=== PATIENT | male | born 1975 | race Caucasian/White ===

== ENCOUNTER 2021-04-28 07:18 | Day surgery (SDC) | payer OTHER ==
[~2021-04-28] VITALS: Ht 180.3 cm; Wt 158.4 kg
[~2021-04-28 07:18] MED LIST: CITA20 PO; LISI20 PO; METF500C PO
--- NOTE | 2021-04-28 09:18 | NUR ---
04/28/21 0918 Isael Saeed History, Chart, Medications and Allergies reviewed before start of procedure.MONITOR INTACT WITH CONTINUOUS PULSE OXIMETRY AND INTERMITTENT BP.3-LEAD EKG REVIEWED WITH PHYSICIAN PRIOR TO START OF PROCEDURE.O2 VIA N/C INTACT THROUGHOUT SEDATION/PROCEDURE. See Anesthesia record.
--- NOTE | 2021-04-28 10:49 | NUR ---
PT RIDE IS NOT AVAILABLE FOR ANOTHER HOUR OR SO DR BISWAS WROTE ORDER FOR PT TO WAIT IN LOBBY WITH VOLUNTEER UPON ARRIVAL OF RIDE AUDRA THE VOLENTEER WILL GET SIDNITURE OF MECHANICAL PRODUCT ENGINEER. Discharge instructions reviewed with patient. Patient verbalizes understanding. Copy given to patient to take home. Patient States Post-Procedure ride home has been arranged. Discharged via wheelchair to private car for ride home.
== END 2021-04-28 22:44 | disposition home or self-care (01) ==
LOC: ORSCMMR 07:18 → ORD 09:15 → ORSCMMR 09:15
PROVIDERS: Internal Medicine Gastroenterology
PROC: 0DJD8ZZ Inspection of Lower Intestinal Tract, Via Natural or Artificial Opening Endoscopic (ICD-10-PCS; principal; 2021-04-28 09:15)
DX: K62.5 Hemorrhage of anus and rectum (principal); K64.4 Residual hemorrhoidal skin tags; G47.33 Obstructive sleep apnea (adult) (pediatric); I10 Essential (primary) hypertension; E11.9 Type 2 diabetes mellitus without complications; E66.01 Morbid (severe) obesity due to excess calories; Z68.42 Body mass index [BMI] 45.0-49.9, adult; E66.9 Obesity, unspecified; Z79.84 Long term (current) use of oral hypoglycemic drugs; Z79.899 Other long term (current) drug therapy
CPT/HCPCS: 82947; J2250; J2405; J2704; J7120

== ENCOUNTER 2021-10-18 20:58 | Emergency (ER) | payer OTHER ==
[~2021-10-18] VITALS: Ht 180.3 cm; Wt 159.7 kg
[~2021-10-18 20:58] MED LIST changes: +FURO20 PO; +POTA10T PO
== END 2021-10-18 21:46 | disposition home or self-care (01) ==
LOC: ER 20:58
DX: J06.9 Acute upper respiratory infection, unspecified (principal); Z79.84 Long term (current) use of oral hypoglycemic drugs; Z79.899 Other long term (current) drug therapy; I10 Essential (primary) hypertension
CPT/HCPCS: 99284

== ENCOUNTER 2023-12-09 23:42 | Emergency (ER) | payer OTHER ==
[~2023-12-09] VITALS: Ht 180.3 cm; Wt 122.5 kg
[2023-12-10] MEDS ORDERED: ATORVASTATIN CA10 M1 (03:11)
[2023-12-10] MEDS ORDERED: LISI5 (03:11)
[2023-12-10 05:38] VITALS: BP 197/80
== END 2023-12-10 09:00 | disposition short-term general hospital (02) ==
LOC: ER 23:42
DX: T18.128A Food in esophagus causing other injury, initial encounter (principal); Z79.899 Other long term (current) drug therapy; Z79.84 Long term (current) use of oral hypoglycemic drugs; I10 Essential (primary) hypertension
CPT/HCPCS: 71250; 99284-25